=== PATIENT | male | born 1990 | race Caucasian/White ===

== ENCOUNTER 2018-09-02 12:05 | Day surgery (SDC) | payer MEDICARE, OTHER ==
[2018-09-02 13:14] LABS: ADD MAN DIFF? NO
[2018-09-02 13:17] LABS: BASOPHILS % 0.4 % (0.0-2.0); EOSINOPHILS # 0.1 10^3/ul (0.0-0.5); EOSINOPHILS % 1.6 % (0.0-7.0); HEMATOCRIT 43.6 % (42.0-52.0); HEMOGLOBIN 15.1 g/dl (14.0-18.0); LYMPHOCYTES # 2.4 10^3/ul (0.8-2.9); LYMPHOCYTES % 46.1 % (15.0-51.0); MEAN CORPUSCULAR HEMOGLOBIN 29.4 pg (29.0-33.0); MEAN CORPUSCULAR HGB CONC 34.6 g/dl (32.0-37.0); MEAN PLATELET VOLUME 11.8 fl (7.4-10.4); MONOCYTE # 0.5 10^3/ul (0.3-0.9); NEUTROPHIL # 2.2 10^3/ul (1.6-7.5); NEUTROPHILS % 42.5 % (39.0-77.0); PLATELET COUNT 280 10^3/UL (140-415); RED BLOOD COUNT 5.13 10^6/ul (4.70-6.10)
[2018-09-02 13:17] LABS: WHITE BLOOD COUNT 5.1 10^3/ul (4.8-10.8)
[2018-09-02] MEDS: LACTATED RINGER'S 1,000 ML IV (13:27)
[2018-09-02 13:37] LABS: ANION GAP 8 (5-13); BLOOD UREA NITROGEN 14 mg/dl (7-20); CALCIUM 10.2 mg/dl (8.4-10.2); CARBON DIOXIDE 28 mmol/L (21-31); CHLORIDE 108 mmol/L (97-110); CREATININE 0.86 mg/dl (0.61-1.24); Estimated GFR > 60 mL/min (>60); GLUCOSE 91 mg/dl (70-220); INR 0.93; POTASSIUM 4.1 mmol/L (3.5-5.1); PROTIME 12.6 Sec (11.9-14.9); SODIUM 144 mmol/L (135-144)
[2018-09-02 13:38] LABS: PARTIAL THROMBOPLASTIN TIME 28.9 Sec (23.0-35.0)
[2018-09-02] MEDS ORDERED: CEFAZOLIN 1 GM INJ (15:00)
[2018-09-02] MEDS ORDERED: BUPIVACAINE 0.5% (SDV) 30 ML INJ (15:10)
[2018-09-02] MEDS ORDERED: MIDAZOLAM 1 MG/ML 2 ML INJ ×2 (15:14→15:59)
[2018-09-02] MEDS: POLYMYXIN/BACITRACIN 1L IRRIG (16:03)
[2018-09-02] MEDS ORDERED: LIDOCAINE 2% (SDV) 5 ML INJ (17:05)
[2018-09-02] MEDS ORDERED: DIPHENHYDRAMINE 50 MG INJ IV (17:30)
[2018-09-02] MEDS ORDERED: MEPERIDINE 25 MG INJ IV (17:30)
[2018-09-02] MEDS ORDERED: ALBUTEROL 0.083% (NEB) 2.5 MG/3 ML AMP HHN (17:30)
[2018-09-02] MEDS ORDERED: MIDAZOLAM 1 MG/ML 2 ML INJ IV (17:30)
[2018-09-02] MEDS ORDERED: FENTAnyl 50 MCG/ML VIAL IV ×3 (17:30)
[2018-09-02] MEDS ORDERED: OXYCODONE/ACETAMINOPHEN (5/325) TAB PO ×2 (17:30)
[2018-09-02] MEDS ORDERED: ONDANSETRON 4 MG INJ IV (17:30)
[2018-09-02] MEDS ORDERED: hydrALAzine 20 MG INJ IV (17:30)
[2018-09-02] MEDS ORDERED: EPHEDrine SULFATE 50 MG/5 ML SYG IV (17:30)
[2018-09-02] MEDS ORDERED: KETOROLAC 30 MG INJ IV (17:30)
[2018-09-02] MEDS ORDERED: LABETALOL HCL 20MG INJ IV (17:30)
== END 2018-09-02 18:15 | disposition home or self-care (01) ==
LOC: SDS 12:05
DX: T84.84XA Pain due to internal orthopedic prosthetic devices, implants and grafts, initial encounter (principal); Y79.3 Surgical instruments, materials and orthopedic devices (including sutures) associated with adverse incidents; Y83.8 Other surgical procedures as the cause of abnormal reaction of the patient, or of later complication, without mention of misadventure at the time of the procedure; G56.02 Carpal tunnel syndrome, left upper limb; M65.832 Other synovitis and tenosynovitis, left forearm
CPT/HCPCS: 20680; 73110-LT; 80048; 85025; 85610; 85730; 88300; 93005